=== PATIENT | male | born 1960 | race Caucasian/White ===

== ENCOUNTER 2017-06-25 10:05 | Day surgery (SDC) | payer BC ==
[2017-06-24 18:09] VITALS: BMI 25.8
[~2017-06-25 10:05] MED LIST: Cyclopentolate 1% Opth Drop 2 ML BOT FS SCH; Fluorouracil 100 MG, Enoxaparin Sodium 25 MG, EPINEPHrine 0.3 MG in Ophthalmic Irrigati... FS SCH; Phenylephrine HCl 2.5% Ophth Soln 5 ML BOT FS SCH
[2017-06-25] MEDS ORDERED: Phenylephrine HCl 2.5% Ophth Soln 5 ML BOT ONE (10:12)
[2017-06-25] MEDS ORDERED: Cyclopentolate 1% Opth Drop 2 ML BOT ONE (10:12)
[2017-06-25] MEDS ORDERED: Midazolam HCl 2 mg/2 ml Vial ONE ×2 (10:52→10:55)
[2017-06-25] MEDS ORDERED: Ondansetron HCl/PF 4 MG/2 ML Vial ONE ×2 (10:55→11:04)
[2017-06-25] MEDS ORDERED: Fentanyl 100 MCG/2 ML VIAL ONE (10:55)
[2017-06-25] MEDS ORDERED: Diprivan 20 ML ONE (10:55)
[2017-06-25] MEDS ORDERED: Propofol 200 MG/20 ML VIAL ONE (11:04)
[2017-06-25] MEDS ORDERED: Lidocaine 2% PF 10 ML AMP (For Epidural Use) ONE (11:04)
--- NOTE | 2017-06-25 13:18 | OP ---
DATE OF PROCEDURE: 06/25/2017 PREOPERATIVE DIAGNOSIS: Rhegmatogenous retinal detachment, right eye. POSTOPERATIVE DIAGNOSIS: Rhegmatogenous retinal detachment, right eye. PROCEDURE PERFORMED: Pars plana vitrectomy and retinal detachment repair, right eye. SURGEON: Alfonso Rizvi M.D. ANESTHESIA: General endotracheal anesthesia. COMPLICATIONS: None. PROCEDURE IN DETAIL: The patient was identified in the preoperative holding area. Appropriate info rmed consent for the planned surgical procedure on the right eye had been obtained. The patient was transported to the operative suite where appropriate cardiopulmonary monitoring was established. G eneral endotracheal anesthesia was initiated. Local anesthesia was initiated with a retrobulbar blo ck. The patient was prepped and draped in the usual sterile manner for ophthalmic surgery on the [facility] eye. Lid speculum was placed in the right eye. The 25-gauge trocars were placed in conjunctiva and sclera supratemporally, inferotemporally, and supranasally. Infusion line was placed inferotem porally. Light pipe and vitreous cutter were inserted into the eye. Core vitrectomy was performed. Tear was found at the 12 o'clock position, all traction was removed from the tear. Complete air f luid exchange was performed and posterior drain retinotomy was created inferior nasal to the nerve. A 360 laser was placed around the eye with special attention to the superior break. A 28% sulfur h exafluoride gas was infused into the eye. Trocars were removed. Superior nasal sclerotomy was sutu red closed. Retrobulbar Kenalog and subconjunctival Ancef were placed. Atropine and antibiotic oin tment were placed, and the eye was patched and shielded. The patient was taken to the postoperative recovery unit in good condition having suffered no immediate perioperative complications. DISCHARGE INSTRUCTIONS: The patient was instructed to keep patch and shield on, avoid lifting or be nding, and follow up in the morning with Dr. Rizvi.
== END 2017-06-25 13:30 | disposition home or self-care (01) ==
LOC: SDC 10:05
PROVIDERS: ATTEND Ophthalmology Retina Specialist
PROC: 08T43ZZ Resection of Right Vitreous, Percutaneous Approach (ICD-10-PCS; principal; 2017-06-25)
PROC: 08QE3ZZ Repair Right Retina, Percutaneous Approach (ICD-10-PCS; principal; 2017-06-25)
DX: H33.011 Retinal detachment with single break, right eye (principal); E78.5 Hyperlipidemia, unspecified; D64.9 Anemia, unspecified; J30.2 Other seasonal allergic rhinitis; M54.5 Low back pain; Z79.899 Other long term (current) drug therapy; Z98.890 Other specified postprocedural states; Z86.59 Personal history of other mental and behavioral disorders
CPT/HCPCS: 67025; J0171; J1650; J2001; J2250; J2405; J2704; J3010; J9190

== ENCOUNTER 2021-02-12 08:27 | Day surgery (SDC) | payer BC ==
[~2021-02-12 08:27] MED LIST changes: -Cyclopentolate 1% Opth Drop 2 ML BOT FS SCH; +EPINEPHrine 0.3 MG in Ophthalmic Irrigation Solution 500 ML IRR SCH; -Fluorouracil 100 MG, Enoxaparin Sodium 25 MG, EPINEPHrine 0.3 MG in Ophthalmic Irrigati... FS SCH; -Phenylephrine HCl 2.5% Ophth Soln 5 ML BOT FS SCH
[2021-02-12] MEDS ORDERED: Phenylephrine 2.5% Ophth Soln 5 ML BOT ONE (08:45)
[2021-02-12] MEDS ORDERED: Cyclopentolate 1% Opth Drop 2 ML BOT ONE (08:45)
[2021-02-12] MEDS ORDERED: Midazolam HCl 2 mg/2 ml Vial ONE (10:09)
[2021-02-12] MEDS ORDERED: Fentanyl 100 MCG/2 ML VIAL ONE (10:12)
[2021-02-12] MEDS ORDERED: PROPOFOL 200 MG/20 ML VIAL ONE (10:30)
[2021-02-12] MEDS ORDERED: Lidocaine 1% PF 5 ML VIAL ONE ×2 (10:30)
[2021-02-12] MEDS ORDERED: CEFAZOLIN 1 GM VIAL ONE (10:30)
[2021-02-12] MEDS ORDERED: Triamcinolone 40 MG/ML VIAL ONE (10:30)
[2021-02-12] MEDS ORDERED: Ondansetron PF 4 MG/2 ML Vial ONE (10:30)
[2021-02-12] MEDS ORDERED: Bupivacaine PF 0.75% SDV 10 ML ONE (10:30)
[2021-02-12] MEDS ORDERED: Dexamethasone 20 MG/5 ML VIAL ONE (10:30)
[2021-02-12] MEDS ORDERED: Lidocaine 4% PF 5 ML AMP ONE (10:30)
[2021-02-12] MEDS ORDERED: Maxitrol 0.1% Opth Oint 3.5 GM TUBE ONE (10:30)
== END 2021-02-12 13:13 | disposition home or self-care (01) ==
LOC: SDC 08:27
PROVIDERS: ATTEND Ophthalmology Retina Specialist
PROC: 08QF3ZZ Repair Left Retina, Percutaneous Approach (ICD-10-PCS; principal; 2021-02-12)
PROC: 08T53ZZ Resection of Left Vitreous, Percutaneous Approach (ICD-10-PCS; principal; 2021-02-12)
DX: H33.022 Retinal detachment with multiple breaks, left eye (principal); Z79.899 Other long term (current) drug therapy
CPT/HCPCS: 67025; J0171; J0690; J1100; J2250; J2405; J2704; J3010; J3301; J3490